=== PATIENT | male | born 1975 | race Caucasian/White ===

== ENCOUNTER 2022-11-29 17:34 | Emergency (ER) | payer BC | END 2022-11-29 19:00 | disposition home or self-care (01) | LOC: ERS 17:34 | DX: S61.012A Laceration without foreign body of left thumb without damage to nail, initial encounter (principal); Z23 Encounter for immunization; W31.2XXA Contact with powered woodworking and forming machines, initial encounter | CPT/HCPCS: 12002; 90471 ==